=== PATIENT | male | born 1985 | race African-American/Black ===

== ENCOUNTER 2016-07-21 22:01 | Emergency (ER) | payer SELFPAY ==
[2016-07-21] MEDS ORDERED: Ibuprofen 800 MG Tab PO ONE (22:36)
--- NOTE | 2016-07-21 22:49 | EDM.PDOC ---
ED HPI Trauma - General Chief Complaint: Upper Extremity Injury/Pain Stated Complaint: PT RIGHT HAND SWOLLEN Time Seen by Provider: 07/21/16 22:30 - History of Present Illness INITIAL COMMENTS - FREE TEXT/NARRATIVE: HISTORY AND PHYSICAL: History of present illness: The patient is a 30-year-old male with a stated medical problems presents with complaints of pain and swelling to his right digits 3,4 and 5 after he [place] the [place]. Patient states that when he feel off the swing he landed on his butt and has some discomfort in his lower back but he is not here for that. He states that when he was falling off a swing he was trying to protect his child who was in his lap and he was holding onto the chain with his right hand and he is not sure what happened to his hand as a result of that. He did not directly fallen the hand and he has no neurosensory changes but he has discomfort. Took one dose of ibuprofen and use ice when it happened but not since. Patient is right-hand dominant. He denies any proximal wrist or upper extremity issues and has no other complaints and had no loss of consciousness neck or head pain. Review of systems: As per history of present illness and below otherwise all systems reviewed and negative. Past medical history: As per history of present illness and as reviewed below otherwise noncontributory. Surgical history: As per history of present illness and as reviewed below otherwise noncontributory. Social history: No reported history of drug or alcohol abuse. Family history: As per history of present illness and as reviewed below otherwise noncontributory. Physical exam: General: Well-developed well-nourished male who is nontoxic and speaking in full sentences. HEENT: Atraumatic, normocephalic, negative for conjunctival pallor or scleral icterus, mucous membranes moist, throat clear, neck supple, nontender, trachea midline. There are no midline step-offs in his defects of the cervical spine Lungs: Clear to auscultation, breath sounds equal bilaterally, chest nontender. Heart: S1S2, regular rate and rhythm no overt murmurs Abdomen: Soft, nondistended, nontender. NABS Pelvis: Stable nontender. Genitourinary: Deferred. Rectal: Deferred. Extremities: Atraumatic throughout all extremities except his right hand where there is pain and swelling at digits 34 and 5 with decreased mobility/flexion and extension because of discomfort. Neurosensory is intact and there is no ecchymosis or skin breaks. The remainder of the hand is nontender as is the proximal wrist forearm elbow and shoulder. The legs are, negative for cords or calf pain. Neurovascular unremarkable. Neuro: Awake, alert, oriented. Cranial nerves II through XII unremarkable. Cerebellum unremarkable. Motor and sensory unremarkable throughout. Exam nonfocal. Diagnostics: X-ray right hand Therapeutics: motrin, finger splint, sling Impression: Right digits 3 through 5 contusion, fracture of the distal phalanx of the third right digit Definitive disposition and diagnosis as appropriate pending reevaluation and review of above. Allergies/ADRs: Allergies No Known Allergies Allergy (Verified 07/21/16 22:34) Home Medications: Ambulatory Orders . [No Known Home Meds] 06/27/14 [Confirmed 07/21/16] Past Medical History - Past Health History Medical/Surgical History: Denies Medical/Surgical History - Infectious Disease History Infectious Disease History: Reports: Chicken pox Social & Family History - Family History Family Medical History: Noncontributory - Tobacco Use Smoking Status *Q: Never Smoker Years of Tobacco use: 8 Second Hand Smoke Exposure: No - Caffeine Use Caffeine Use: Reports: None, Coffee - Alcohol Use Days Per Week of Alcohol Use: 0 - Recreational Drug Use Recreational Drug Use: Yes Recreational Drug Type: Reports: Marijuana/Hashish Other Recreational Drug Type: last taken 3 days ago Recreational Drug Use Frequency: Socially Review of Systems - Review of Systems Review Of Systems: ROS reveals no pertinent complaints other than HPI. Trauma Exam - Physical Exam Exam: See Below (See dictation) Course - Vital Signs Last Recorded V/S: Last Vital Signs Temp 36.4 C 07/21/16 22:29 Pulse 55 L 07/21/16 22:29 Resp 17 07/21/16 22:29 BP 111/53 L 07/21/16 22:29 Pulse Ox 99 07/21/16 22:29 - Orders/Labs/Meds Orders: Active Orders 24 hr Category Date Time Status Hand Comp Min 3V Rt [CR] Stat Exams 07/21/16 22:36 Taken DME for Discharge [COMM] Stat Oth 07/21/16 23:28 Ordered Meds: Medications Discontinued Medications Generic Name Dose Route Start Last Admin Trade Name Freq PRN Reason Stop Dose Admin Ibuprofen 800 mg 07/21/16 22:36 07/21/16 23:05 Motrin PO 07/21/16 22:37 800 mg ONETIME ONE Administration Departure - Departure Time of Disposition: 23:29 Disposition: Home, Self-Care 01 Condition: good Clinical Impression: Fracture of distal phalanx of finger of right hand Finger contusion Qualifiers: Encounter type: initial encounter Finger: middle finger Damage to nail status: without damage Laterality: right Qualified Code(s): S60.031A - Contusion of right middle finger without damage to nail, initial encounter Forms: ED Department Discharge Additional Instructions: The following information is given to patients seen in the emergency department who are being discharged to home. This information is to outline your options for follow-up care. We provide all patients seen in our emergency department with a follow-up referral. The need for follow-up, as well as the timing and circumstances, are variable depending upon the specifics of your emergency department visit. If you don't have a primary care physician on staff, we will provide you with a referral. We always advise you to contact your personal physician following an emergency department visit to inform them of the circumstance of the visit and for follow-up with them and/or the need for any referrals to a consulting specialist. The emergency department will also refer you to a specialist when appropriate. This referral assures that you have the opportunity for followup care with a specialist. All of these measure are taken in an effort to provide you with optimal care, which includes your followup. Under all circumstances we always encourage you to contact your private physician who remains a resource for coordinating your care. When calling for followup care, please make the office aware that this follow-up is from your recent emergency room visit. If for any reason you are refused follow-up, please contact the [facility] emergency department at and ask to speak to the emergency department charge nurse. [facility] Primary [facility]- [facility] Medicine [facility] [address] [place] [id number] [facility] Specialty clinic-Plastic Surgery and Hand Surgery Professional Building [address] [place] [address] [address] [place] [address] Please leave splint on her finger and use a sling and to followup with a specialist. Please call and followup with our hand specialist, , using resources given to above. Ice to area and elevate as much is possible. Please use [id number] Tylenol/ibuprofen or stronger pain medications as needed. You will be given [place] from our Interactive [employer] [facility] - My Orders Last 24 Hours: My Active Orders 07/21/16 22:36 Hand Comp Min 3V Rt [CR] Stat 07/21/16 23:28 DME for Discharge [COMM] Stat - Assessment/Plan Last 24 Hours: My Active Orders 07/21/16 22:36 Hand Comp Min 3V Rt [CR] Stat 07/21/16 23:28 DME for Discharge [COMM] Stat
[2016-07-22 01:00] VITALS: BP 109/61
--- NOTE | 2016-07-22 11:29 | CR ---
EXAM DATE: 07/21/16 PATIENT'S AGE: 30 Patient: DAVID COLES Facility: [place], [place] Site . Site : 1985 Study: XRay Extremity hand [id number]/13/2017 10:53:03 PM Ordering Physician: Hima Abbott Final Report: INDICATION: Trauma. TECHNIQUE: Three views right hand COMPARISON: None FINDINGS: Bones: Oblique intra-articular fracture involving the base of the distal phalanx 3rd digit. Joint spaces: Unremarkable. Soft tissues: Unremarkable. IMPRESSION: Oblique intra-articular fracture involving the base of the distal phalanx 3rd digit. Dictated by Alvaro Cloud MD @ 07/21/2016 10:57:08 PM Dictated by: Alvaro Cloud MD @ 07/21/2016 22:57:14 (Electronic Signature) Report Signed by Proxy and Original Signed Document filed in the Medical Record. [email or web address]
[2016-08-19] MEDS ORDERED: Diphtheria,Pertussis(Acell),Tetanus Vaccine 0.5 ML Syringe IM ONE (08:21)
== END 2016-07-22 | disposition home or self-care (01) ==
LOC: MW.ED 22:01
DX: S62.632A Displaced fracture of distal phalanx of right middle finger, initial encounter for closed fracture (principal); W09.1XXA Fall from playground swing, initial encounter; Y92.830 Public park as the place of occurrence of the external cause
CPT/HCPCS: 73130; 99283; A4566; A9270